=== PATIENT | female | born 2000 | race American Indian/Alaskan Native ===

== ENCOUNTER 2019-07-24 16:30 | Emergency (ER) | payer SELFPAY ==
[2019-07-24 16:40] VITALS: BP 126/75
--- NOTE | 2019-07-24 17:02 | Emergency Department Report ---
Chief Complaint: Extremity Problem,Nontraumatic Stated Complaint: RT KNEE INFECTED Time Seen by Provider: 07/24/19 16:38 - HPI History of Present Illness: 19 y o female presents to ED cc of right knee abrasion that occured 3 weeks ago and think its not healing well, Pt states its itchy and feels like its getting infected She denies fever,chills, n,v or any other symptoms - ROS Review of Systems: As noted in HPI - Exam Physical Exam: GEN: AAO x 3 SkIN: right knee well healing abrasion no signs of infection, erythema or swelling MSE screening note: Focused history and physical exam performed. Due to findings the following was ordered: ED Disposition for MSE Clinical Impression: Abrasion of knee, right Disposition: DC- TO HOME OR SELFCARE Is pt being admited?: No Does the pt Need Aspirin: No Condition: Stable Instructions: Abrasion (ED) Additional Instructions: follow up with pcp take medication as prescribed Prescriptions: Clindamycin [Clindamycin CAP] 300 mg PO Q8H #15 cap cephALEXin [Keflex] 500 mg PO Q12HR #10 cap Ibuprofen [Motrin] 600 mg PO Q8H #20 tablet Referrals: PRIMARY CARE, [Primary Care Provider] - 3-5 Days [facility] [Outside] - 3-5 Days [facility] [Outside] - 3-5 Days Forms: Accompanied Note, Work/School Release Form(ED) Time of Disposition: 17:07
== END 2019-07-24 17:23 | disposition home or self-care (01) ==
LOC: ED 16:30
DX: S80.211A Abrasion, right knee, initial encounter (principal); X58.XXXA Exposure to other specified factors, initial encounter; Y93.89 Activity, other specified; Y92.89 Other specified places as the place of occurrence of the external cause; Y99.8 Other external cause status